=== PATIENT | female | born 1940 | race Caucasian/White ===

== ENCOUNTER 2021-02-20 19:24 | Emergency (ER) | payer OTHER ==
[2021-02-20] MEDS ORDERED: HYDROCODON-ACE1 EAC4 PO (22:56)
== END 2021-02-20 23:40 | disposition home or self-care (01) ==
LOC: ER1 19:24
DX: S42.292A Other displaced fracture of upper end of left humerus, initial encounter for closed fracture (principal); E78.5 Hyperlipidemia, unspecified; F17.200 Nicotine dependence, unspecified, uncomplicated; Z23 Encounter for immunization; W01.0XXA Fall on same level from slipping, tripping and stumbling without subsequent striking against object, initial encounter
CPT/HCPCS: 70450; 73030; 73060; 73200; 90715; 99284

== ENCOUNTER → 2021-03-22 | Outpatient (CLI) | payer OTHER ==
[~2021-03-22] MED LIST: HYDROCODON-ACE1 EAC4 PO
== END ==
LOC: EXRD 09:00
DX: R74.8 Abnormal levels of other serum enzymes (principal)
CPT/HCPCS: 76705